=== PATIENT | male | born 1940 | race Caucasian/White ===

== ENCOUNTER 2019-10-07 09:57 | Emergency (ER) | payer MEDICARE ==
[~2019-10-07] VITALS: Ht 172.7 cm; Wt 78.0 kg
[2019-10-07 10:03] VITALS: BP 184/96
[2019-10-07] MEDS ORDERED: AMOX-580 PO (10:43)
[2019-10-07] MEDS ORDERED: L. R1CAP4 PO (10:43)
== END 2019-10-07 10:54 | disposition home or self-care (01) ==
LOC: ER 09:58
DX: R05 Cough (principal); Z79.899 Other long term (current) drug therapy
CPT/HCPCS: 99283

== ENCOUNTER 2024-02-13 10:39 | Emergency (ER) | payer MEDICARE ==
[~2024-02-13] VITALS: Ht 172.7 cm; Wt 80.9 kg
[~2024-02-13 10:39] MED LIST: L. R1CAP4 PO
[2024-02-13] MEDS ORDERED: AMOX-117 PO (11:46)
[2024-02-13 12:10] VITALS: BP 140/88; PULSE 77; RESP 17; TEMP 98.6; O2SAT 95
== END 2024-02-13 12:11 | disposition home or self-care (01) ==
LOC: ER 10:39
DX: J32.9 Chronic sinusitis, unspecified (principal); Z79.2 Long term (current) use of antibiotics; Z79.899 Other long term (current) drug therapy; Z87.891 Personal history of nicotine dependence
CPT/HCPCS: 71045; 99283

== ENCOUNTER 2025-02-22 20:10 | Emergency (ER) | payer MEDICARE ==
[~2025-02-22] VITALS: Ht 172.7 cm; Wt 72.1 kg
[2025-02-22 20:46] VITALS: BP 156/98; PULSE 77; RESP 15; TEMP 97.6; O2SAT 99
== END 2025-02-23 00:36 | disposition left against medical advice (07) ==
LOC: ER 20:10
DX: R51.9 Headache, unspecified (principal); Z53.21 Procedure and treatment not carried out due to patient leaving prior to being seen by health care provider